=== PATIENT | male | born 1980 | race African-American/Black ===

== ENCOUNTER 2020-12-04 04:10 | Emergency (ER) | payer OTHER, BC ==
[~2020-12-04] VITALS: Ht 177.8 cm; Wt 79.3 kg
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
[2020-12-04 05:16] VITALS: BP 116/82
--- NOTE | 2020-12-04 07:30 | Diagnostic Imaging Report ---
EXAMINATION: Left elbow radiographs, 3 views. COMPARISON: None. HISTORY: 30-year-old male, elbow pain. Injury. FINDINGS: There is no elbow joint effusion. There is no identified acute fracture. There is no identified radiopaque foreign body. The joint spaces are well preserved. IMPRESSION: Unremarkable radiographs of the left elbow. Dictated by: Dictated on workstation # [id number]
== END 2020-12-04 05:16 | disposition home or self-care (01) ==
LOC: ER FS 04:12 → EDBD 04:12 → ER FS 05:16
DX: S51.012A Laceration without foreign body of left elbow, initial encounter (principal); V89.2XXA Person injured in unspecified motor-vehicle accident, traffic, initial encounter
CPT/HCPCS: 73070